=== PATIENT | female | born 1985 | race African-American/Black ===

== ENCOUNTER 2017-01-01 17:00 | Observation (INO) | payer MEDICAID ==
[2017-01-01] MEDS ORDERED: PREN-96 PO (18:15)
== END 2017-01-01 18:53 | disposition home or self-care (01) | DRG 566 ==
LOC: LDRP 17:00
PROVIDERS: ADMIT Specialist; ATTEND Specialist
DX: O42.913 Preterm premature rupture of membranes, unspecified as to length of time between rupture and onset of labor, third trimester (principal); Z3A.36 36 weeks gestation of pregnancy
CPT/HCPCS: 59025; 80307; 81002; G0378

== ENCOUNTER 2017-01-23 13:35 | Observation (INO) | payer MEDICAID ==
[~2017-01-23 13:35] MED LIST: PREN-96 PO
== END 2017-01-23 14:40 | disposition home or self-care (01) | DRG 566 ==
LOC: LDRP 13:35
PROVIDERS: ADMIT Specialist; ATTEND Specialist
DX: O36.8130 Decreased fetal movements, third trimester, not applicable or unspecified (principal); Z3A.39 39 weeks gestation of pregnancy
CPT/HCPCS: 59025; 76818; 81002; G0378